=== PATIENT | female | born 1985 | race Caucasian/White ===

== ENCOUNTER 2017-10-19 10:10 | Observation (INO) | payer MEDICAID | END 2017-10-19 11:55 | disposition home or self-care (01) | DRG 566 | LOC: LDRP 10:10 | PROVIDERS: ADMIT Obstetrics & Gynecology; ATTEND Obstetrics & Gynecology | DX: O24.419 Gestational diabetes mellitus in pregnancy, unspecified control (principal); Z3A.37 37 weeks gestation of pregnancy | CPT/HCPCS: 59025; 76818; 81002; 82962; G0378 ==

== ENCOUNTER 2017-10-22 09:50 | Observation (INO) | payer MEDICAID ==
[2017-10-22] MEDS ORDERED: PREN-129 OR (11:45)
[2017-10-22] MEDS ORDERED: GLYB1.257 PO (11:45)
== END 2017-10-22 11:10 | disposition home or self-care (01) | DRG 566 ==
LOC: LDRP 09:50
PROVIDERS: ADMIT Specialist; ATTEND Specialist
DX: O24.419 Gestational diabetes mellitus in pregnancy, unspecified control (principal); Z3A.37 37 weeks gestation of pregnancy
CPT/HCPCS: 59025; 76818; 81002; 82948; 82962; G0378

== ENCOUNTER 2017-10-26 10:19 | Observation (INO) | payer MEDICAID ==
[~2017-10-26 10:19] MED LIST: GLYB1.257 PO; PREN-129 OR
== END 2017-10-26 12:45 | disposition home or self-care (01) | DRG 566 ==
LOC: LDRP 10:19
PROVIDERS: ADMIT Specialist; ATTEND Specialist
DX: O24.419 Gestational diabetes mellitus in pregnancy, unspecified control (principal); O62.9 Abnormality of forces of labor, unspecified; Z3A.38 38 weeks gestation of pregnancy
CPT/HCPCS: 59025; 76818; 81002; 82948; G0378

== ENCOUNTER 2017-10-29 10:15 | Observation (INO) | payer MEDICAID | END 2017-10-29 11:35 | disposition home or self-care (01) | DRG 566 | LOC: LDRP 10:15 | PROVIDERS: ADMIT Obstetrics & Gynecology; ATTEND Obstetrics & Gynecology | DX: O24.419 Gestational diabetes mellitus in pregnancy, unspecified control (principal); Z3A.38 38 weeks gestation of pregnancy | CPT/HCPCS: 59025; 76818; 81002; 82962; G0378 ==

== ENCOUNTER 2017-11-01 16:00 | Inpatient (IN) | payer MEDICAID ==
[2017-10-31] MEDS: ACCU-CHEK COMFORT CURVE STRIP VI SCH (20:13)
[~2017-11-01] VITALS: Ht 160 cm; Wt 89.4 kg
[2017-11-01] MEDS: ACCU-CHEK COMFORT CURVE STRIP VI SCH ×2 (00:12→19:30)
[2017-11-01] MEDS ORDERED: PROMETHAZINE HCL 25 MG/ML 1ML IV PRN (16:45)
[2017-11-01] MEDS ORDERED: PHISODERM TOP SOLN 240ML BTL TOP PRN (16:45)
[2017-11-01] MEDS ORDERED: LIDOCAINE 2% (LOCAL ANESTH.) PF 5ml SDV ID ONE ×2 (16:45→19:30)
[2017-11-01] MEDS ORDERED: PENICILLIN G POT 5MIL/D5 50ML 50 ML IV ONE (16:45)
[2017-11-01] MEDS ORDERED: WITCH HAZEL-GLYCERIN PAD TOP PRN (16:45)
[2017-11-01] MEDS ORDERED: CARBOPROST TROMETHAMINE 250 MCG/1ML VIAL IM PRN (16:45)
[2017-11-01] MEDS ORDERED: NALBUPHINE HCL 10 MG/1ml INJECTION IV PRN (16:45)
[2017-11-01] MEDS ORDERED: DERMOPLAST 60ML BOTTLE TOP PRN (16:45)
[2017-11-01] MEDS ORDERED: METHYLERGONOVINE MALEATE 0.2 MG/ML AMP IM PRN (16:45)
[2017-11-01] MEDS: LACTATED RINGER'S 1,000 ML IV SCH (16:55)
[2017-11-01 17:22] LABS: Basophils # (auto) 0 uL; Basophils % (auto) 0.5 % (0.0-2.0); Eosinophils # (auto) 0.1 uL; Eosinophils % (auto) 1.1 % (0.0-7.0); Hematocrit 30.8 % (36.0-46.0); Hemoglobin 10.6 g/dL (12.2-16.2); Lymphocytes # (auto) 1.8 uL; Lymphocytes % (auto) 21.2 % (10.0-50.0); Mean Corpuscular Hgb Conc. 34.3 g/dL (32.0-36.0); Mean Corpuscular Volume 87.4 fL (80.0-100.0); Monocytes # (auto) 0.4 uL; Monocytes % (auto) 4.8 % (0.0-12.0); Neutrophils # (auto) 6.3 uL; Neutrophils % (auto) 72.4 % (37.0-80.0); Nucleated Red Blood Cells % 0.1 %; Platelet Count (auto) 188 10^3/uL (140-450); Red Blood Cells 3.52 10^6/uL (4.0-5.20); Red Cell Distribution Width 13.8 % (11.8-14.3); White Blood Cell 8.7 10^3/uL (4.4-10.8)
[2017-11-01 17:32] LABS: Urine Bacteria MOD /hpf (None Seen); Urine Blood Negative /uL (Negative); Urine Mucus FEW (None Seen); Urine Specific Gravity 1.017 (1.001-1.035); Urine WBC 14 /hpf (0 - 5)
[2017-11-01 17:37] LABS: Albumin 2.8 g/dL (3.4-5.0); BUN/Creatinine Ratio 18.2; Potassium 3.4 mmol/L (3.5-5.1)
[2017-11-01 17:39] LABS: Bilirubin, Total 0.5 mg/dL (0.2-1.0)
[2017-11-01 17:54] LABS: INR 0.87 (0.9-1.15); Partial Thromboplastin Time 28.5 sec (23.78-33.04); Prothrombin Time 9.4 sec (9.27-12.13)
[2017-11-01] MEDS: PENICILLIN G POTASSIUM 2,500,000 UNITS in D5W 5% 50 ML IV SCH (20:51)
[2017-11-02] MEDS: LACTATED RINGER'S 1,000 ML IV SCH ×3 (00:33→17:17)
[2017-11-02] MEDS: PENICILLIN G POTASSIUM 2,500,000 UNITS in D5W 5% 50 ML IV SCH ×5 (00:58→18:25)
[2017-11-02] MEDS: ACCU-CHEK COMFORT CURVE STRIP VI SCH ×4 (06:00→18:25)
[2017-11-02] MEDS ORDERED: TERBUTALINE SULFATE 1 MG/ML 1ML VIAL SC ONE (17:00)
[2017-11-02] MEDS: LACT. RINGERS/OXYTOCIN 20UNITS 1,000 ML IV SCH (17:18)
[2017-11-03] MEDS: PENICILLIN G POTASSIUM 2,500,000 UNITS in D5W 5% 50 ML IV SCH ×4 (00:08→12:19)
[2017-11-03] MEDS: ACCU-CHEK COMFORT CURVE STRIP VI SCH (00:08)
[2017-11-03] MEDS: LACTATED RINGER'S 1,000 ML IV SCH (04:04)
[2017-11-03] MEDS: LACT. RINGERS/OXYTOCIN 20UNITS 1,000 ML IV SCH (04:50)
[2017-11-03 05:06] LABS: RPR Non Reactive (Non Reactive)
[2017-11-03] MEDS ORDERED: PROMETHAZINE HCL 25 MG/ML 1ML IV ONE (06:00)
[2017-11-03] MEDS ORDERED: ONDANSETRON HCL 4 MG/2 ML VIAL IV ONE (07:15)
[2017-11-03] MEDS ORDERED: ePHEDrine SULFATE 50 MG/ML AMP IV ONE ×2 (08:00→09:00)
[2017-11-03] MEDS ORDERED: fentaNYL CITRATE 100 MCG/2 ML VL IV ONE ×2 (08:00→09:00)
[2017-11-03] MEDS ORDERED: fentaNYL W ROPIVACAINE 150 ML EPI SCH ×2 (08:00→09:00)
[2017-11-03] MEDS ORDERED: NALOXONE HCL 0.4 MG/ML VIAL IV ONE ×2 (08:00→09:00)
[2017-11-03] MEDS ORDERED: LIDOCAINE HCL 2 %PF INJ 10ML AMP IJ ONE (08:00)
[2017-11-03] MEDS ORDERED: LIDOCAINE 2% (LOCAL ANESTH.) PF 5ml SDV ONE ×2 (08:45→08:58)
[2017-11-03] MEDS ORDERED: SODIUM CHLORIDE 0.9% 500 ML IV PRN (08:47)
[2017-11-03 19:10] VITALS: BP 108/60
[2017-11-03] MEDS: DOCUSATE CALCIUM 240 MG CAP PO SCH (21:53)
[2017-11-03 23:00] VITALS: BP 112/60
[2017-11-04 03:00] VITALS: BP 111/58
[2017-11-04] MEDS: IBUPROFEN 600 MG TAB PO PRN ×2 (05:51→11:40)
[2017-11-04 07:00] VITALS: BP 108/58
[2017-11-04] MEDS: DOCUSATE CALCIUM 240 MG CAP PO SCH (10:00)
[2017-11-04 11:00] VITALS: BP 111/65
[2017-11-04 15:00] VITALS: BP 108/62
[2017-11-04 15:11] VITALS: BP 108/62
== END 2017-11-04 16:30 | disposition home or self-care (01) | DRG 560 ==
LOC: OBSVTOIN 16:00 → LDRP 16:00
PROVIDERS: ADMIT Specialist; ATTEND Specialist
PROC: 0KQM0ZZ Repair Perineum Muscle, Open Approach (ICD-10-PCS; principal; 2017-11-03)
PROC: 10E0XZZ Delivery of Products of Conception, External Approach (ICD-10-PCS; 2017-11-03)
PROC: 3E0R3BZ Introduction of Anesthetic Agent into Spinal Canal, Percutaneous Approach (ICD-10-PCS; 2017-11-03)
PROC: 00HU33Z Insertion of Infusion Device into Spinal Canal, Percutaneous Approach (ICD-10-PCS; 2017-11-03)
PROC: 3E0P7VZ Introduction of Hormone into Female Reproductive, Via Natural or Artificial Opening (ICD-10-PCS; 2017-11-03)
DX: O24.429 Gestational diabetes mellitus in childbirth, unspecified control (principal); O70.1 Second degree perineal laceration during delivery; O99.824 Streptococcus B carrier state complicating childbirth; Z37.0 Single live birth; Z3A.39 39 weeks gestation of pregnancy; Z87.891 Personal history of nicotine dependence
CPT/HCPCS: 36415; 51702; 59025; 59409; 62282; 76815; 80053; 81001; 82947; 82948; 82962; 85025; 85610; 85730; 86592; 86850; 86900; 86901; 96361; 96365; 96366; 96374; 96375; G0378; J2001; J2405; J2540; J2590; J3010; J7060